=== PATIENT | female | born 1950 | race Caucasian/White ===

== ENCOUNTER 2018-11-25 11:41 | Outpatient (CLI) | payer MEDICARE ==
--- NOTE | 2018-11-25 12:22 | RAD ---
TWO VIEWS CHEST: Comparison: 03-14-18 History: Cough and congestion for three weeks. FINDINGS: Two views of the chest shows normal sized cardiomediastinal silhouette. There is no evidence of conso lidation, mass or pleural effusion. Hardware is seen in the spine and right shoulder. IMPRESSION: No evidence of acute cardiopulmonary disease. POS: [facility]
== END 2018-11-25 11:42 | disposition home or self-care (01) ==
LOC: BICRAD 11:41
PROVIDERS: ATTEND Nurse Practitioner Family
DX: R05 Cough (principal); R06.2 Wheezing
CPT/HCPCS: 71046

== ENCOUNTER 2020-10-22 10:54 | Outpatient (CLI) | payer MEDICARE, OTHER ==
--- NOTE | 2020-10-22 11:26 | MMO ---
Bilateral MAMMO Bilat Screen [facility]. CLINICAL HISTORY: Patient is 70 years old and is seen for screening. The patient has no family history of breast cancer. The patient has no personal history of cancer. The patient has a history of right Excisional Biopsy at age 39 - benign. VIEWS: The views performed were: bilateral craniocaudal with tomosynthesis and bilateral mediolateral oblique with tomosynthesis. FILMS COMPARED: The present examination has been compared to prior imaging studies performed at [facility] on 05/17/2019, and at [facility] on 09/17/2014, 01/13/2016 and 03/02/2017. This study has been interpreted with the assistance of computer-aided detection. MAMMOGRAM FINDINGS: There are scattered fibroglandular densities. Benign calcifications are noted bilaterally. There are no suspicious masses, suspicious calcifications, or new areas of architectural distortion. IMPRESSION: THERE IS NO MAMMOGRAPHIC EVIDENCE OF MALIGNANCY. A ROUTINE FOLLOW-UP MAMMOGRAM IN 1 YEAR IS RECOMMENDED. THE RESULTS OF THIS EXAM WERE SENT TO THE PATIENT. ACR BI-RADS Category 2 - Benign finding MAMMOGRAPHY NOTE: 1. A negative mammogram report should not delay a biopsy if a dominant of clinically suspicious mass is present. 2. Approximately 10% to 15% of breast cancers are not detected by mammography. 3. Adenosis and dense breasts may obscure an underlying neoplasm. Reported by: DAMON HALEY MD Electonically Signed: [id number]
== END 2020-10-22 10:55 | disposition home or self-care (01) ==
LOC: BICMAMMO 10:54
PROVIDERS: ATTEND Family Medicine
DX: Z12.31 Encounter for screening mammogram for malignant neoplasm of breast (principal); Z91.89 Other specified personal risk factors, not elsewhere classified
CPT/HCPCS: 77063; 77067

== ENCOUNTER 2023-09-09 13:30 | Inpatient (IN) | payer MEDICARE ==
[2023-09-09] MEDS ORDERED: dilTIAZem 125 MG/25 ML SDV ONE (13:42)
[2023-09-09 13:59] LABS: #Eosinphils 0.1 thou/uL (0.0-0.7); #Neutrophils 5.7 thou/uL (1.40-6.50); %Basophils 0.4 % (0.0-1.0); %Eosinophils 0.9 % (0.0-10.0); %Lymphocytes 30.1 % (21.0-51.0); %Monocytes 10.2 % (0.0-10.0); %Neutrophils 57.8 % (42.0-75.0); Hematocrit 49.3 % (36.0-47.0); Hemoglobin 17.3 g/dL (12.0-16.0); Mean Corpuscular HGB CONC 35.1 g/dL (32.0-36.0); Mean Corpuscular Hemoglobin 33.1 pg (27.0-31.0); Mean Corpuscular Volume 94.3 fl (78.0-98.0); Mean Platelet Volume 10.4 fL (7.4-10.4); Platelet Count 297 10x3/uL (130-400); Red Blood Cell (RBC) Count 5.23 mill/uL (4.20-5.40); White Blood Cell (WBC) Count 9.8 10x3/uL (4.8-10.8)
[2023-09-09 14:36] LABS: Troponin I Less than 0.010 ng/mL (< 0.028)
[2023-09-09 14:43] LABS: PTT 27.9 sec (22.9-36.1); Prothrombin Time 13.4 sec (12.0-14.7)
[2023-09-09 14:44] LABS: D-Dimer Test 0.58 *mcg/mL (0.27-0.43)
[2023-09-09 14:56] LABS: ALT (SGPT) 29 U/L (8-55); AST (SGOT) 23 U/L (5-34); Albumin 4.6 g/dL (3.4-4.8); Alkaline Phosphatase 62 U/L (40-110); Anion Gap 24 mmol/L (10-20); BUN (Urea Nitrogen) 10 mg/dL (9.8-20.1); Bilirubin, Total 0.8 mg/dL (0.2-1.2); Calc. Creatinine Clearance 0 mL/min (70-130); Calcium 10.7 mg/dL (7.8-10.44); Carbon Dioxide 19 mmol/L (23-31); Chloride 95 mmol/L (98-107); Estimated GFR 68; Globulin 2.6 g/dL (2.4-3.5); Glucose 102 mg/dL (83-110); Lipase 73 U/L (8-78); Magnesium 1.2 mg/dL (1.6-2.6); Protein, Total 7.2 g/dL (5.8-8.1); Sodium 135 mmol/L (136-145)
[2023-09-09 15:05] LABS: Potassium 2.5 mmol/L (3.5-5.1)
[2023-09-09] MEDS ORDERED: fentaNYL 50 mcg/mL 1 mL Vial ONE (15:23)
[2023-09-09 16:08] LABS: Bacteria/HPF None Seen HPF (None Seen); Bilirubin Negative (Negative); Blood, Urine Negative (Negative); CAUTI Indications for Culture Alt mental st,lethar; Clarity Clear (Clear); Glucose, Urine (Dipstick) Normal (Negative); Ketone, Urine 10 mg/dL (Negative); Leukocyte Negative Leu/uL (Negative); Nitrite Negative (Negative); Protein, Urine (Dipstick) Negative (Neg-Trace); RBC/HPF 0-3 HPF (0-3); Specific Gravity, Urine 1.006 (1.002-1.036); Squamous Epithelial 0-3 HPF (0-3); Urobilinogen Normal mg/dL (Less than 2); WBC/HPF 0-3 HPF (0-3)
[2023-09-09] MEDS ORDERED: NS 0.9% w/ 20 MEQ KCL 1,000 ML ONE (16:08)
[2023-09-09 16:09] LABS: Urine Culture Reflex No No
[2023-09-09] MEDS ORDERED: Potassium Chloride 20 MEQ TAB ONE ×2 (16:23→16:26)
[2023-09-09] MEDS ORDERED: Magnesium 2 GM/50 ML BAG (IN WATER) ONE (16:23)
[2023-09-09] MEDS ORDERED: Senokot S 8.6-50 MG TAB PO PRN (17:04)
[2023-09-09] MEDS ORDERED: Calcium Carbonate 500 MG ChewTAB PO PRN (17:04)
[2023-09-09] MEDS ORDERED: Acetaminophen 325 MG TAB PO PRN (17:04)
[2023-09-09] MEDS ORDERED: Ondansetron PF 4 MG/2 ML Vial IVP PRN (17:04)
[2023-09-09] MEDS ORDERED: Cyclobenzaprine 10 MG TAB PO PRN (17:09)
[2023-09-09] MEDS ORDERED: Magnesium 2 GM/50 ML(in water) 2 GM in Premix Bag 1 BAG IVPB SCH ×2 (17:15→20:45)
[2023-09-09] MEDS: dilTIAZem 125 MG in Sodium Chloride 0.9% 100 ML IVPB SCH (20:00)
[2023-09-09 20:03] VITALS: BMI 27.1
[2023-09-09] MEDS: Sodium Chloride 0.9% 1,000 ML IV SCH (20:03)
[2023-09-09] MEDS: CO Q-10 CAPSULE 100 MG PO SCH (20:10)
[2023-09-09] MEDS ORDERED: Electrolyte Replacement Protocol 1 EACH FS SCH (20:31)
[2023-09-09] MEDS ORDERED: Potassium Chloride 20 MEQ TAB PO SCH (20:45)
[2023-09-09] MEDS ORDERED: Magnesium Oxide 250 MG TAB PO SCH (21:00)
[2023-09-09 21:25] LABS: Anion Gap 17 mmol/L (10-20); BUN (Urea Nitrogen) 7 mg/dL (9.8-20.1); Calc. Creatinine Clearance 73 mL/min (70-130); Calcium 9.5 mg/dL (7.8-10.44); Carbon Dioxide 22 mmol/L (23-31); Chloride 102 mmol/L (98-107); Estimated GFR 88; Glucose 86 mg/dL (83-110); Magnesium 1.7 mg/dL (1.6-2.6); Potassium 3.1 mmol/L (3.5-5.1); Sodium 138 mmol/L (136-145)
[2023-09-10] MEDS ORDERED: Melatonin 3 MG TAB PO SCH (02:00)
[2023-09-10 04:06] LABS: #Eosinphils 0.1 thou/uL (0.0-0.7); #Monocytes 0.7 thou/uL (0.11-0.59); #Neutrophils 4.5 thou/uL (1.40-6.50); %Basophils 0.3 % (0.0-1.0); %Eosinophils 1.3 % (0.0-10.0); %Lymphocytes 23.7 % (21.0-51.0); %Monocytes 10.1 % (0.0-10.0); %Neutrophils 63.9 % (42.0-75.0); Mean Corpuscular HGB CONC 34.9 g/dL (32.0-36.0); Mean Corpuscular Hemoglobin 33.9 pg (27.0-31.0); Platelet Count 268 10x3/uL (130-400); RBC Distribution Width 13.2 % (11.5-14.5); Red Blood Cell (RBC) Count 4.22 mill/uL (4.20-5.40)
[2023-09-10 04:26] LABS: Phosphorus 2.4 mg/dL (2.3-4.7)
[2023-09-10 04:32] LABS: ALT (SGPT) 25 U/L (8-55); AST (SGOT) 22 U/L (5-34); Alkaline Phosphatase 55 U/L (40-110); Anion Gap 13 mmol/L (10-20); BUN (Urea Nitrogen) 6 mg/dL (9.8-20.1); Bilirubin, Total 0.7 mg/dL (0.2-1.2); Calc. Creatinine Clearance 78 mL/min (70-130); Calcium 9.3 mg/dL (7.8-10.44); Carbon Dioxide 25 mmol/L (23-31); Chloride 104 mmol/L (98-107); Estimated GFR 93; Glucose 82 mg/dL (83-110); Potassium 3.5 mmol/L (3.5-5.1); Sodium 138 mmol/L (136-145)
[2023-09-10] MEDS: Sodium Chloride 0.9% 1,000 ML IV SCH (04:33)
[2023-09-10 04:37] LABS: Hemoglobin 14.3 g/dL (12.0-16.0); Mean Corpuscular Volume 97.2 fl (78.0-98.0)
[2023-09-10] MEDS: dilTIAZem 125 MG in Sodium Chloride 0.9% 100 ML IVPB SCH (05:22)
[2023-09-10] MEDS ORDERED: Potassium Chloride 20 MEQ TAB PO SCH ×2 (08:00→14:00)
[2023-09-10] MEDS ORDERED: Magnesium 2 GM/50 ML(in water) 2 GM in Premix Bag 1 BAG IVPB SCH (08:00)
[2023-09-10] MEDS: CO Q-10 CAPSULE 100 MG PO SCH (08:33)
[2023-09-10] MEDS ORDERED: Aspirin 81 mg Enteric Coated Tablet PO SCH ×2 (08:45→09:00)
[2023-09-10 12:09] VITALS: TEMP 97.8
[2023-09-10 13:14] LABS: Potassium 3.4 mmol/L (3.5-5.1)
[2023-09-10] MEDS ORDERED: Apixaban 5 MG TAB PO SCH (21:00)
[2023-09-11] MEDS ORDERED: Aspirin 81 mg Enteric Coated Tablet PO SCH (09:00)
[2023-09-13] MEDS ORDERED: FLU VACC QS2023(65UP)/MF59C/PF 60 MCG/0.5 ML SYRINGE IM ONE (09:00)
== END 2023-09-10 16:30 | disposition home or self-care (01) | DRG 310 ==
LOC: SUATTDRO 13:30 → ERS 13:30 → IMCU/EMU 17:12
PROVIDERS: ADMIT Internal Medicine; ATTEND Internal Medicine
DX: I48.0 Paroxysmal atrial fibrillation (principal); E87.6 Hypokalemia; E83.42 Hypomagnesemia; E83.52 Hypercalcemia; I10 Essential (primary) hypertension; E86.0 Dehydration; E87.8 Other disorders of electrolyte and fluid balance, not elsewhere classified; Z88.8 Allergy status to other drugs, medicaments and biological substances; Z79.899 Other long term (current) drug therapy; Z79.82 Long term (current) use of aspirin; Z98.890 Other specified postprocedural states; Z91.018 Allergy to other foods
CPT/HCPCS: 36415; 71045; 80053; 81001; 83690; 83735; 83880; 84100; 84443; 84484; 85025; 85379; 85610; 85730; 92960; 93005; 93306; 96365; 96366; 96368; 96375; 99152; 99153; J1650; J3010; J3475; J3480; J3490; J7050